=== PATIENT | female | born 1990 | race African-American/Black ===

== ENCOUNTER 2018-03-17 06:24 | Emergency (ER) | payer MEDICAID ==
[~2018-03-17] VITALS: Ht 180.3 cm; Wt 95.0 kg
[2018-03-17] MEDS ORDERED: ONDANSETRON HCL 4MG/2ML VIAL IV STA (08:48)
[2018-03-17] MEDS ORDERED: MORPHINE SULFATE 4 MG/ML CPJ (NOT FOR IM USE) IV STA (08:48)
[2018-03-17] MEDS ORDERED: SODIUM CHLORIDE 0.9% 1,000 ML IV ONE (08:48)
[2018-03-17 09:20] LABS: BASOPHILS % 0.2 % (0.0-2.0); EOSINOPHILS % 0.4 % (0.0-5.0); HEMATOCRIT. 29.4 % (36.0-48.0); HEMOGLOBIN. 9.6 g/dL (12.0-16.0); LYMPHOCYTES % 7.6 % (20.0-50.0); MEAN CORPUSCULAR HEMOGLOBIN 23.2 pg (28.0-32.0); MEAN CORPUSCULAR VOLUME 71.1 fL (81.0-99.0); MEAN PLATELET VOLUME 8.8 fl (7.4-10.4); MONOCYTES % 4.3 % (2.0-8.0); NEUTROPHILS % 87.5 % (40.0-76.0); PLATELET 282 x1000/uL (130-400); RED BLOOD CELL COUNT 4.14 mill/uL (4.2-5.4); RED CELL DISTRIBUTION WIDTH 16.6 % (11.6-14.6)
[2018-03-17 09:26] LABS: CHLORIDE 104 mEq/L (98-107)
[2018-03-17 09:35] LABS: CREATINE KINASE 53 IU/L (26-192); D-DIMER 0.38 mg/L FEU (<0.50); INR 1.1; PROTHROMBIN TIME 11.3 sec (9.4-11.6)
[2018-03-17 09:38] LABS: CREATINE KINASE MB FRACTION < 0.5 ng/mL (0.5-3.6)
[2018-03-17 10:35] LABS: CLARITY URINE CLEAR (CLEAR); COLOR URINE YELLOW (YELLOW); KETONES URINE NEGATIVE (NEGATIVE); LEUKOCYTE ESTERASE URINE NEGATIVE (NEGATIVE); NITRITE URINE NEGATIVE (NEGATIVE); OCCULT BLOOD URINE TRACE (NEGATIVE); PH URINE 6.5 (4.5-8.0); PROTEIN URINE NEGATIVE (NEGATIVE); SPECIFIC GRAVITY URINE 1.028 (1.005-1.030)
[2018-03-17 11:05] LABS: HCG SCREEN NEGATIVE
[2018-03-17] MEDS ORDERED: DIAZEPAM 5 MG TABLET PO ONE (11:30)
[2018-03-17] MEDS ORDERED: KETOROLAC 30MG/ML VIAL IV ONE (11:30)
[2018-03-17 12:49] VITALS: BP 116/70
== END 2018-03-17 12:51 | disposition home or self-care (01) ==
LOC: ER 06:24
DX: M54.5 Low back pain (principal); I10 Essential (primary) hypertension; J45.909 Unspecified asthma, uncomplicated; R06.00 Dyspnea, unspecified; E66.01 Morbid (severe) obesity due to excess calories; G40.909 Epilepsy, unspecified, not intractable, without status epilepticus; Z68.29 Body mass index [BMI] 29.0-29.9, adult; Z88.6 Allergy status to analgesic agent
CPT/HCPCS: 36415; 71045; 76705; 80053; 81003; 82550; 82553; 83690; 83880; 84484; 84703; 85025; 85379; 85610; 85730; 93005; 93970; 96361; 96374; 96375; 99285; J1885; J2270; J2405; J7030